=== PATIENT | male | born 1995 | race Caucasian/White ===

== ENCOUNTER 2017-12-24 08:31 | Emergency (ER) | payer OTHER ==
[2017-12-24] MEDS ORDERED: IBUPROFEN 600 MG TAB PO ONE (08:48)
[2017-12-24] MEDS ORDERED: OXYCODONE/APAP 5/325 TAB PO ONE (08:48)
--- NOTE | 2017-12-24 08:50 | EDPHY ---
H & P Time Seen by Provider: 12/24/17 08:42 HPI/ROS: CHIEF COMPLAINT: Right-sided abdominal pain HISTORY OF PRESENT ILLNESS: Patient was out drinking with his girlfriend last night when he got home at 2:00 a.m. He had sudden onset while lying in bed of right-sided abdominal pain. Not positional, no vomiting or diarrhea. Had a little bit of nausea but he says that might have been the alcohol. Not associated with dysuria hematuria or fever. No testicular symptoms. No recent injury or trauma. REVIEW OF SYSTEMS: Eye: no change in vision ENT: no sore throat Cardiac: no chest pain or syncope Pulmonary: no cough or SOB Abdomen: HPI Musculoskeletal: no back pain Skin: no rash Neuro: no headache Constitutional: no fever : no urinary symptoms A comprehensive 10 point review of systems is otherwise negative aside from elements mentioned in the history of present illness. PAST MEDICAL HISTORY: Asthma Social history: Alcohol last night, nonsmoker General Appearance: Alert and conversant, cooperative. Eyes: No scleral icterus. ENT, Mouth: Normal mucous membranes. Respiratory: Normal respiratory effort, breath sounds equal, lungs are clear to auscultation. Cardiovascular: Regular rate and rhythm. Gastrointestinal: Abdomen is nontender. No McBurney's point tenderness. No hernia. Normal male , normal testicles and penis. No pulsatile mass. Neurological: Alert, face symmetric, normal motor and sensory in extremities. Ambulatory. Skin: Warm and dry, no rashes. Musculoskeletal: No peripheral edema. Psychiatric: Not agitated. Emergency Department course/MDM: Much more suspicious for renal colic with sudden onset of pain and no abdominal tenderness or fever. Oral ibuprofen, oxycodone, urine dip and renal ultrasound. 952: No hydronephrosis per Sage, tiny lower pole right kidney stone. Re-examined at this time, pain is 0. Abdomen soft and nontender, including over McBurney's point. Likely passed a kidney stone. I-STAT to check BUN and creatinine, discharge with urology follow-up. I-STAT performed with BUN 18 creatinine 1.0 Renal colic considered most likely even without hydronephrosis on ultrasound, as that is also correlated with resolution of his symptoms. Smoking Status: Never smoked Constitutional: Initial Vital Signs Temperature (C) 36.8 C 12/24/17 08:37 Heart Rate 72 12/24/17 08:37 Respiratory Rate 16 12/24/17 08:37 Blood Pressure 141/97 H 12/24/17 08:37 O2 Sat (%) 96 12/24/17 08:37 O2 Delivery Mode Room Air Allergies/Adverse Reactions: amoxicillin [From Augmentin] Allergy (Verified 12/24/17 08:37) clavulanic acid [From Augmentin] Allergy (Verified 12/24/17 08:37) Home Medications: Medication Instructions Recorded EM-D 12 HOUR TABLET 12/24/17 Advair Hfa 115-21 Mcg Inhaler 12/24/17 Albuterol 12/24/17 Singulair 12/24/17 Medical Decision Making - Diagnostics Imaging Results: Imaging Impressions Abdomen/Pelvis Ultrasound 12/24/17 08:48 Impression: 1. No hydronephrosis. 2. Possible medical renal disease. Correlation with creatinine level is recommended. 3. Nonobstructive right lower pole nephrolithiasis. 4. Right extrarenal pelvis. Results discussed with Dr. Donaldson at 9:51 AM. 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 - Data Points Laboratory Results: 12/24/17 10:17 POC Hgb 15.0 gm/dL gm/dL (13.7-17.5) POC Hct 44 % % (40-51) POC Sodium 138 mEq/L mEq/L (135-145) POC Potassium 4.0 mEq/L mEq/L (3.3-5.0) POC Chloride 98 mEq/L mEq/L (97-110) POC BUN 18 mg/dL mg/dL (7-23) POC Creatinine 1.0 mg/dL mg/dL (0.7-1.3) POC Glucose 96 mg/dL mg/dL (70-100) Medications Given: Discontinued Medications Ibuprofen (Motrin) 600 mg PO EDNOW ONE Stop: 12/24/17 08:49 Last Admin: 12/24/17 09:03 Dose: 600 mg Oxycodone/Acetaminophen (Percocet 5/325) 1 tab PO EDNOW ONE Stop: 12/24/17 08:49 Last Admin: 12/24/17 09:02 Dose: 1 tab Point of Care Test Results: 12/24/17 10:17 POC Sodium 138 POC Potassium 4.0 POC Chloride 98 POC BUN 18 POC Creatinine 1.0 POC Glucose 96 Departure - Departure Disposition: Home, Routine, Self-Care Clinical Impression: Renal colic on right side Condition: Good Instructions: Renal Colic (ED) Additional Instructions: Strain urine as directed. Bring any stone that you find to follow up urologist. See her within the next week. Referrals: Megan Peguero MD [Medical Doctor] - 5-7 days, call for appt.
[2017-12-24 10:27] VITALS: BP 130/92; PULSE 82; RESP 18; TEMP 97.7; O2SAT 98
== END 2017-12-24 10:28 | disposition home or self-care (01) ==
DX: N23 Unspecified renal colic (principal); J45.909 Unspecified asthma, uncomplicated
CPT/HCPCS: 82947-QW